=== PATIENT | male | born 1945 ===

== ENCOUNTER 2018-09-10 10:07 | Inpatient (IN) ==
[2018-09-10] MEDS ORDERED: ASPIRIN 325 MG TABLET PO STA (10:18)
[2018-09-10] MEDS ORDERED: ENOXAPARIN 100 MG/ML SYRINGE SUBCUT STA (10:18)
[2018-09-10] MEDS ORDERED: ACETAMINOPHEN 325 MG TABLET PO PRN (10:24)
[2018-09-10] MEDS ORDERED: ONDANSETRON 4 MG/2 ML VIAL IV PRN (10:24)
[2018-09-10] MEDS ORDERED: diphenhydrAMINE CAP 25 MG CAPSULE PO PRN (10:24)
[2018-09-10] MEDS ORDERED: MORPHINE 4 MG/1 ML VIAL IV PRN (10:24)
[2018-09-10] MEDS ORDERED: NICOTINE 21 MG/24 HR PATCH TRANSDERM PRN (10:24)
[2018-09-10] MEDS ORDERED: DOCUSATE SODIUM 100 MG CAPSULE PO PRN (10:24)
[2018-09-10] MEDS ORDERED: ZALEPLON 5 MG CAPSULE PO PRN (10:24)
[2018-09-10] MEDS ORDERED: LACTULOSE 20 GM/30 ML UDCUP PO PRN (10:24)
[2018-09-10] MEDS ORDERED: MAGNESIUM SULF RIDER 2 GM in PREMIX 1 EACH IV PRN (10:24)
[2018-09-10] MEDS ORDERED: LIDOCAINE 1% 20 ML VIAL ONE (10:24)
[2018-09-10] MEDS ORDERED: PROMETHAZINE 25 MG TABLET PO PRN (10:24)
[2018-09-10] MEDS ORDERED: MAGNESIUM SULF RIDER 4 GM in PREMIX 1 EACH IV PRN (10:24)
[2018-09-10] MEDS ORDERED: fentaNYL 100 MCG/2 ML VIAL ONE (10:28)
[2018-09-10] MEDS ORDERED: MIDAZOLAM 2 MG/2 ML VIAL ONE (10:28)
[2018-09-10] MEDS ORDERED: TIROFIBAN 5,000 MCG/100 ML PREMIX IV ONE (10:35)
[2018-09-10 10:55] LABS: Albumin 4.2 G/DL (3.4-5.0); Bilirubin,Total 0.5 MG/DL (0.2-1.0); Calcium 9.4 MG/DL (8.5-10.1); Osmolality,Calculated 282.3 MOS/KG (273-304); Total Protein 7.5 G/DL (6.4-8.3)
[2018-09-10 10:56] LABS: Troponin I < 0.015 NG/ML (0.00-0.045)
[2018-09-10] MEDS ORDERED: NITROGLYCERIN SL 0.4 MG TABLET SL PRN (10:57)
[2018-09-10] MEDS ORDERED: chlordiazePOXIDE 25 MG CAPSULE PO PRN (10:57)
[2018-09-10] MEDS ORDERED: LORazepam 2 MG/1 ML VIAL IV PRN (10:58)
[2018-09-10] MEDS ORDERED: TICAGRELOR 90 MG TABLET ONE (10:58)
[2018-09-10 11:08] LABS: Risk Ratio 2.79; Thyroid Stimulating Hormone 1.09 uIU/ml (0.358-3.74); VLDL CHOLESTEROL 35.4 MG/DL
[2018-09-10] MEDS: TIROFIBAN 5,000 MCG/100 ML PREMIX IV SCH ×2 (11:08→22:03)
[2018-09-10 12:02] LABS: Basophils # 0.1 10*3/uL (0.0-0.2); Basophils % 0.5 % (0.0-0.8); Eosinophils % 0.2 % (0.00-10.9); Hematocrit 40.9 VOL% (42.0-52.0); Hemoglobin 13.6 GM/DL (14.0-18.0); Immature Granulocytes % 0.5 %; Immature Granulocytes Absolute 0.06 #; Lymphocytes # 0.6 10*3/uL (1.4-4.0); Lymphocytes % 5.2 % (21.2-54.2); Mean Corpuscular HGB Conc 33.3 GM/DL (32-36); Mean Corpuscular Volume 101.5 FL (87-102); Mean Platelet Volume 10.6 FL (9.6-12.0); Monocytes % 7.7 % (1.7-12.7); Neutrophils % 85.9 % (38.7-73.9); Platelet Count 167 T/CUMM (130-400); Red Blood Count 4.03 MC/CUMM (3.8-5.5); White Blood Count 12.4 T/CUMM (4-12)
[2018-09-10] MEDS: SODIUM CHLORIDE 0.45% 1,000 ML IV SCH ×2 (12:29→21:04)
[2018-09-10 12:35] LABS: Troponin I 0.721 NG/ML (0.00-0.045)
[2018-09-10 13:10] LABS: Folate > 24.0 NG/ML (5.4-24.0); Vitamin B12 447 PG/ML (211-911)
[2018-09-10 17:10] LABS: CKMB % 8.8 %
[2018-09-10 17:15] LABS: Troponin I 5.42 NG/ML (0.00-0.045)
[2018-09-10] MEDS: TICAGRELOR 90 MG TABLET PO SCH (20:58)
[2018-09-10] MEDS: ROSUVASTATIN 20 MG TABLET PO SCH (20:58)
[2018-09-10] MEDS: METOPROLOL TARTRATE 50 MG TABLET PO SCH (20:58)
[2018-09-11 05:50] LABS: Basophils % 0.5 % (0.0-0.8); Eosinophils # 0.1 10*3/uL (0.0-0.87); Eosinophils % 0.9 % (0.00-10.9); Hematocrit 39.4 VOL% (42.0-52.0); Hemoglobin 13.3 GM/DL (14.0-18.0); Immature Granulocytes % 0.5 %; Immature Granulocytes Absolute 0.04 #; Lymphocytes % 12.3 % (21.2-54.2); Mean Corpuscular HGB Conc 33.8 GM/DL (32-36); Mean Corpuscular Volume 100.3 FL (87-102); Mean Platelet Volume 11.3 FL (9.6-12.0); Neutrophils % 72.8 % (38.7-73.9); Platelet Count 153 T/CUMM (130-400); Red Blood Count 3.93 MC/CUMM (3.8-5.5); Red Cell Distribution Width 11.9 % (9.3-17.3); White Blood Count 7.7 T/CUMM (4-12)
[2018-09-11] MEDS: SODIUM CHLORIDE 0.45% 1,000 ML IV SCH ×2 (05:50→21:27)
[2018-09-11 06:28] LABS: CKMB % 7.7 %; Calcium 8.9 MG/DL (8.5-10.1); Osmolality,Calculated 274.5 MOS/KG (273-304)
[2018-09-11 06:31] LABS: Troponin I 3.51 NG/ML (0.00-0.045)
[2018-09-11 06:49] LABS: Barbiturates Screen,Urine Negative (Negative); Benzodiazepines Screen,Urine Positive (Negative); Cannabinoid Screen,Urine Negative (Negative); Opiate Screen,Urine Negative (Negative); Phencyclidine Screen,Urine Negative (Negative)
[2018-09-11 06:52] LABS: Apearance,Urine CLEAR (Clear); Bilirubin,Urine Negative (Negative); Blood, Urine Negative (Negative); Calcium Oxalate Crystals,Urine Few /HPF (Few); Glucose,Urine (UA) Negative (Negative); Ketones,Urine Negative (Negative); Mucus,Urine Occasional /LPF (Occasional); Nitrite,Urine Negative (Negative); Protein,Urine Negative; RBC,Urine 1 /HPF (0-4); Urine Color Yellow (Yellow); Urine Specific Gravity 1.023 (1.001-1.035); Urine Urobilinogen < 2.0 EU/DL (0.2-1.0); WBC,Urine <1 /HPF (0-6)
[2018-09-11] MEDS: POTASSIUM CHLORIDE 20 MEQ TABLET PO PRN ×3 (06:53→11:42)
[2018-09-11] MEDS: METOPROLOL TARTRATE 50 MG TABLET PO SCH ×2 (08:44→21:28)
[2018-09-11] MEDS: TICAGRELOR 90 MG TABLET PO SCH ×2 (08:44→21:28)
[2018-09-11] MEDS: ASPIRIN EC 81 MG TABLET PO SCH (08:45)
[2018-09-11] MEDS: PANTOPRAZOLE 40 MG TABLET PO SCH (08:45)
[2018-09-11] MEDS: ROSUVASTATIN 20 MG TABLET PO SCH (21:28)
[2018-09-12 04:47] LABS: Basophils % 0.4 % (0.0-0.8); Eosinophils # 0.1 10*3/uL (0.0-0.87); Eosinophils % 1.5 % (0.00-10.9); Hemoglobin 12.4 GM/DL (14.0-18.0); Immature Granulocytes % 0.7 %; Immature Granulocytes Absolute 0.05 #; Lymphocytes # 1.3 10*3/uL (1.4-4.0); Lymphocytes % 19.1 % (21.2-54.2); Mean Corpuscular HGB Conc 33.5 GM/DL (32-36); Mean Corpuscular Volume 101.6 FL (87-102); Mean Platelet Volume 11.6 FL (9.6-12.0); Monocytes % 13.2 % (1.7-12.7); Neutrophils % 65.1 % (38.7-73.9); Platelet Count 140 T/CUMM (130-400); Red Blood Count 3.64 MC/CUMM (3.8-5.5); Red Cell Distribution Width 11.9 % (9.3-17.3); White Blood Count 6.8 T/CUMM (4-12)
[2018-09-12 05:05] LABS: Calcium 8.9 MG/DL (8.5-10.1); Osmolality,Calculated 278.3 MOS/KG (273-304)
[2018-09-12 08:19] VITALS: BP 105/66
[2018-09-12] MEDS: TICAGRELOR 90 MG TABLET PO SCH (08:43)
[2018-09-12] MEDS: SODIUM CHLORIDE 0.45% 1,000 ML IV SCH (08:43)
[2018-09-12] MEDS: PANTOPRAZOLE 40 MG TABLET PO SCH (08:43)
[2018-09-12] MEDS: METOPROLOL TARTRATE 50 MG TABLET PO SCH (08:43)
[2018-09-12] MEDS: ASPIRIN EC 81 MG TABLET PO SCH (08:43)
== END 2018-09-12 10:04 | disposition home or self-care (01) | DRG 247 ==
LOC: EDUNIT# → EDBD → N.ED 10:07 → N.CC 10:18 → N.EDINP 10:24 → N.CC 11:31 → N.TELES 09-11 11:53
PROVIDERS: ADMIT Internal Medicine Cardiovascular Disease; ATTEND Internal Medicine Cardiovascular Disease
PROC: CLCCHCL (ICD-10-PCS; 2018-09-10 10:45)